=== PATIENT | female | born 1970 ===

== ENCOUNTER 2017-04-30 21:14 | Emergency (ER) | payer MEDICAID ==
[2017-04-30 21:24] VITALS: BP 140/80; PULSE 88; RESP 18; TEMP 97.8; O2SAT 99
--- NOTE | 2017-04-30 21:55 | ED PDOC ---
Upper Extremity Pain/Injury Time Seen by Provider: 04/30/17 21:45 Chief Complaint (Nursing): Finger,Hand,&Wrist Chief Complaint (Provider): Left hand injury History Per: Patient History/Exam Limitations: no limitations Onset/Duration Of Symptoms: Mins Current Symptoms Are (Timing): Still Present Severity: Moderate Additional History Per: Patient Additional Complaint(s): The pt is a 47yo female, left hand dominant, presents to ED for evaluation of left hand injury sustained prior to arrival. Pt reports she attempted to open a glass door in her bathroom when it broke and multiple glass pieces landed on her left hand. She reports pain and swelling to her left hand, denies any numbness or tingling. She offers no additional medical complaints. Past Medical History Reviewed: Historical Data, Nursing Documentation, Vital Signs Vital Signs: Last Vital Signs Temp 97.8 F 04/30/17 21:20 Pulse 88 04/30/17 21:20 Resp 18 04/30/17 21:20 BP 140/80 04/30/17 21:20 Pulse Ox 99 04/30/17 21:20 - Medical History PMH: No Chronic Diseases, Deep Vein Thrombosis Denies: Chronic Kidney Disease - Surgical History Surgical History: No Surg Hx - Family History Family History: States: Unknown Family Hx - Immunization History Hx Tetanus Toxoid Vaccination: No - Home Medications Home Medications: Ambulatory Orders Medication Instructions Recorded DiphenhydrAMINE [Benadryl] 50 mg PO Q8 PRN #30 cap 05/08/16 Methylprednisolone [Medrol Dose 4 mg PO DAILY #21 mg 05/08/16 Pack (21 tabs)] oxyCODONE/Acetaminophen [Percocet 1 tab PO Q6 PRN #8 tab 09/25/16 5/325 mg Tab] Naproxen [Naprosyn Tab] 375 mg PO Q8 PRN #21 tab 04/30/17 - Allergies Allergies/Adverse Reactions: Allergies Allergy/AdvReac Type Severity Reaction Status Date / Time No Known Allergies Allergy Verified 09/25/16 19:02 Review of Systems ROS Statement: Except As Marked, All Systems Reviewed And Found Negative Musculoskeletal: Positive for: Hand Pain (left) Physical Exam - Reviewed Nursing Documentation Reviewed: Yes Vital Signs Reviewed: Yes - Physical Exam Appears: Positive for: Well, Non-toxic, No Acute Distress Head Exam: Positive for: ATRAUMATIC, NORMAL INSPECTION, NORMOCEPHALIC Skin: Positive for: Normal Color, Warm, DRY Eye Exam: Positive for: Normal appearance Neck: Positive for: Normal, Supple Cardiovascular/Chest: Positive for: Regular Rate, Rhythm Respiratory: Negative for: Respiratory Distress Extremity: Positive for: Normal ROM, Swelling (moderate swelling and ecchymosis near left 4th MCP. multiple small superficial laceration on dorsum of left hand. ), Other (Limited exam due to pain). Negative for: Deformity Neurologic/Psych: Positive for: Alert, Oriented - ECG O2 Sat by Pulse Oximetry: 99 (RA) Pulse Ox Interpretation: Normal - Progress ED Course And Treament: tetanus up to date Took 2 alleve at 6pm. Xry of hand: no foreign body; no fx noted placed in volar splint Medical Decision Making Medical Decision Making: Time: 2149 Impression: Left hand injury Plan: -- Left hand XR Scribe Attestation: Documented by Jesusita Russ acting as a scribe for [facility] Provider Attestation: All medical record entries made by the Scribe were at my direction and personally dictated by me. I have reviewed the chart and agree that the record accurately reflects my personal performance of the history, physical exam, medical decision making, and the department course for this patient. I have also personally directed, reviewed, and agree with the discharge instructions and disposition. Disposition - Clinical Impression Clinical Impression: Hand contusion, Multiple abrasions - Patient ED Disposition Is Patient to be Admitted: No - Disposition Referrals: Erik Hernández MD [Medical Doctor] - Jama Banegas MD [Staff Provider] - Disposition: Routine/Home Disposition Time: 22:52 Condition: FAIR Prescriptions: Naproxen [Naprosyn Tab] 375 mg PO Q8 PRN #21 tab PRN Reason: Pain, Moderate (4-7) Instructions: Hand Sprain (ED), Contusion in Adults (GEN), Abrasion (ED) Print Language: THAI
--- NOTE | 2017-05-01 11:43 | RAD ---
PROCEDURE: Left Hand Radiographs. HISTORY: HAND INJURY COMPARISON: None. FINDINGS: BONES: Bone alignment and mineralization are normal. There is no acute fracture or bone destruction. JOINTS: The joint spaces are preserved. SOFT TISSUES: Normal. OTHER FINDINGS: None. IMPRESSION: No acute fracture or dislocation.
== END 2017-04-30 23:58 | disposition home or self-care (01) ==
LOC: H.ER 21:14
DX: S60.512A Abrasion of left hand, initial encounter (principal); S60.222A Contusion of left hand, initial encounter; W22.8XXA Striking against or struck by other objects, initial encounter; Y92.002 Bathroom of unspecified non-institutional (private) residence as the place of occurrence of the external cause